=== PATIENT | male | born 1945 | race Caucasian/White ===

== ENCOUNTER 2021-10-21 17:17 | Observation (INO) ==
[2021-10-21] MEDS ORDERED: ceFAZolin 1 GM ADVAN 1 GM in NS 0.9% 50 ML 50 ML IVPB ONE (17:45)
[2021-10-21] MEDS ORDERED: Tetan/Diph/Pertus SYR(Tdap) 0.5 ML SYR(BOOSTRIX) use SYR contains LATEX IM ONE (18:24)
[2021-10-21 18:50] LABS: ABS Lymphocytes 0.6 10^3/ul (1.0-4.8); ABS Monocytes 0.3 10^3/ul (0-0.8); ABS Neutrophils 11.7 10^3/ul (1.5-7.7); Hematocrit 39 % (42-52); Hemoglobin 13.3 g/dL (14.0-18.0); Lymphocyte % 4.6 %; Mean Corpuscular HGB Conc 34 g/dL (31-36); Mean Corpuscular Hemoglobin 29 pg (27-31); Mean Corpuscular Volume 87 fL (80-94); Mean Platelet Volume 7.3 fL (7.4-10.4); Platelet Count 303 10^3/uL (150-450); Red Blood Count 4.52 10^6 /uL (4.18-5.48); Red Cell Distribution Width 14 % (10-15); White Blood Count 12.6 10^3/uL (3.5-10.8)
[2021-10-21 19:07] LABS: Albumin 3.9 g/dL (3.2-5.2); Albumin/Globulin Ratio 1.6 (1-3); Calcium 8.9 mg/dL (8.6-10.3); Globulin 2.5 g/dL (2-4); Potassium 3.9 mmol/L (3.5-5.0); Total Bilirubin 0.5 mg/dL (0.2-1.0); Total Protein 6.4 g/dL (6.4-8.9); eGFR CKD-EPI 91.5 (>60)
[2021-10-22] MEDS: ceFAZolin VIAL 2 GM in NS 0.9% 100 ml BAG 100 ML IVPB SCH ×2 (02:54→10:25)
[2021-10-22] MEDS ORDERED: Acetaminophen IV 1 GM/100ML 100 ML IV PRN (04:18)
[2021-10-22] MEDS ORDERED: Acetaminophen IV 1 GM/100ML VI 100 ML IV PRN (05:00)
[2021-10-22 05:38] LABS: ABS Eosinophils 0.1 10^3/ul (0-0.6); ABS Lymphocytes 1.1 10^3/ul (1.0-4.8); ABS Monocytes 0.7 10^3/ul (0-0.8); Eosinophil % 0.6 %; Hematocrit 36 % (42-52); Hemoglobin 12.5 g/dL (14.0-18.0); Lymphocyte % 11.4 %; Mean Corpuscular HGB Conc 35 g/dL (31-36); Mean Corpuscular Hemoglobin 30 pg (27-31); Mean Corpuscular Volume 86 fL (80-94); Mean Platelet Volume 7.5 fL (7.4-10.4); Platelet Count 271 10^3/uL (150-450); Red Cell Distribution Width 13 % (10-15); White Blood Count 9.9 10^3/uL (3.5-10.8)
[2021-10-22 06:04] LABS: Calcium 8.3 mg/dL (8.6-10.3); Potassium 3.8 mmol/L (3.5-5.0); eGFR CKD-EPI 94.3 (>60)
[2021-10-22] MEDS ORDERED: Lactated Ringers 1000 ml BAG 1,000 ML IV SCH ×2 (10:00→12:00)
[2021-10-22] MEDS ORDERED: Famotidine IV 10 MG/ML 2 ml VIAL (20 mg) IV ONE (11:29)
[2021-10-22] MEDS ORDERED: Buffered Lidocaine 1% SYRIN 1 ml INTRADERM ONE (11:29)
[2021-10-22] MEDS ORDERED: Bupivacaine 0.25% SDV 30 ML ONE (11:58)
[2021-10-22] MEDS ORDERED: Midazolam 2 mg/2 ml VIAL 1 mg/ml 2 ml VIAL (2 mg) ONE (12:02)
[2021-10-22] MEDS ORDERED: ceFAZolin 2 GM in NS PREMIX 2 GM/100 ML BAG IVPB ONE (12:33)
[2021-10-22] MEDS ORDERED: HYDROmorphone 0.5 MG/0.5 ML SYRINGE ONE (12:50)
[2021-10-22] MEDS ORDERED: Lidocaine 2% PF 5 ML VIAL ONE (12:56)
[2021-10-22] MEDS ORDERED: Dexamethasone IV 4 MG/ML VIAL 1 ml VIAL ONE (12:56)
[2021-10-22] MEDS ORDERED: Propofol 10 MG/ML 20 ML BTL ONE (12:56)
[2021-10-22] MEDS ORDERED: Ondansetron 4 mg VIAL 2 MG/ML 2 ml VIAL ONE (12:56)
[2021-10-22] MEDS ORDERED: Naloxone 0.4 mg VIAL 0.4 mg/ml 1 ml VIAL IV PRN (15:40)
[2021-10-22] MEDS ORDERED: Ondansetron 4 mg VIAL 2 MG/ML 2 ml VIAL IV PRN (15:40)
[2021-10-22] MEDS ORDERED: Metoclopramide 5 MG/ML VIAL (10 mg) IV PRN (15:40)
[2021-10-22] MEDS ORDERED: fentaNYL 100 mcg/2 ml 50 MCG/ML VIAL ONE (16:10)
[2021-10-22] MEDS: fentaNYL 100 mcg/2 ml 50 MCG/ML VIAL IV PRN ×3 (16:12→16:48)
[2021-10-22 20:16] VITALS: BP 140/76
== END 2021-10-22 18:26 | disposition home or self-care (01) ==
LOC: ED 17:17 → EDHOLD 17:17 → SUATTDRO 20:01 → SSU 22:19
PROVIDERS: ADMIT Internal Medicine; ATTEND Orthopaedic Surgery